=== PATIENT | male | born 1960 | race Caucasian/White ===

== ENCOUNTER 2016-12-12 19:26 | Emergency (ER) | payer OTHER ==
[~2016-12-12] VITALS: Ht 172.7 cm; Wt 106.5 kg
[2016-12-12] MEDS ORDERED: SODIUM CHLORIDE FLUSH 10ML SYR IVF ONE (20:00)
[2016-12-12] MEDS ORDERED: LABETALOL 5MG/ML, 20ML IVPush ONE (20:00)
[2016-12-12] MEDS ORDERED: ASPIRIN 81 MG TABLET CHEW PO ONE (20:00)
[2016-12-12] MEDS ORDERED: NITROGLYCERIN OINT 2%, 1GM TP ONE ×2 (20:00→20:11)
[2016-12-12] MEDS ORDERED: ASPIRIN 81 MG TABLET CHEW ONE (20:11)
[2016-12-12] MEDS ORDERED: LABETALOL 5MG/ML, 20ML ONE (20:12)
[2016-12-12] MEDS ORDERED: LORazepam 2 MG/ML, 1ML ONE ×2 (20:20→21:08)
[2016-12-12] MEDS ORDERED: LORazepam 2 MG/ML, 1ML IVPush ONE ×2 (20:30→21:00)
[2016-12-12 20:32] LABS: BLOOD UREA NITROGEN 13 mg/dL (7-18)
[2016-12-12] MEDS ORDERED: BENA20TA61 PO (20:37)
[2016-12-12] MEDS ORDERED: ASPI-496 PO (20:37)
[2016-12-12] MEDS ORDERED: NIFE30TA PO (20:37)
[2016-12-12 20:38] LABS: ASPARTATE AMINO TRANSFERASE 47 U/L (15-37); IS PT STATUS REG ER OR PRE ER? YES
[2016-12-12] MEDS ORDERED: OMNIPAQUE 350 MG/ML, 100ML BOTTLE ONE (20:45)
[2016-12-12] MEDS ORDERED: SODIUM CHLORIDE 0.9% 1,000ML IVBOLUS ONE (21:00)
[2016-12-12 21:59] VITALS: BP 113/84
== END 2016-12-12 22:02 | disposition home or self-care (01) ==
LOC: ED 21:37
DX: R00.0 Tachycardia, unspecified (principal); I10 Essential (primary) hypertension; Z85.528 Personal history of other malignant neoplasm of kidney; G47.30 Sleep apnea, unspecified
CPT/HCPCS: 36415; 71010; 71275; 80053; 83880; 84436; 84443; 84484; 85025; 93005; 96361; 96374; 96376; 99285; J2060; J7030; Q9967